=== PATIENT | female | born 1950 | race Caucasian/White ===

== ENCOUNTER → 2018-12-03 | Outpatient (CLI) | payer OTHER, MEDICARE | END | disposition home or self-care (01) | LOC: LAB EV 14:56 → LAB SHORT 14:56 | DX: N39.0 Urinary tract infection, site not specified (principal) | CPT/HCPCS: 87077; 87086; 87186 ==

== ENCOUNTER → 2018-12-08 | Outpatient (CLI) | payer OTHER, MEDICARE ==
[2018-12-08 18:44] LABS: Source, Urine Catheter
[2018-12-08 19:08] LABS: Bilirubin, Urine Neg (Neg); Blood, Urine 2+ (Neg); Glucose Qualitative, Urine Neg (Neg); Ketones, Urine Neg (Neg); Leukocyte Esterase, Urine Neg (Neg); Nitrite, Urine Neg (Neg); Protein, Urine 2+ (Neg); Urobilinogen, Urine NORM (Normal)
[2018-12-08 19:10] LABS: Appearance, Urine Clear (Clear); Color, Urine Yellow (P-Yellow)
[2018-12-08 19:11] LABS: Bacteria Few /hpf; Squamous Epithelial Cells Few /hpf (Few); White Blood Cells, Urine 0-2 /hpf (0-5)
[2018-12-10 14:07] LABS: HPV 16 Negative (Negative); HPV 18 Negative (Negative); HPV OTHER HR TYPES Negative (Negative)
== END | disposition home or self-care (01) ==
LOC: LAB 17:24 → LAB SHORT 17:24
PROVIDERS: Obstetrics & Gynecology Gynecology
DX: R39.89 Other symptoms and signs involving the genitourinary system (principal); Z91.89 Other specified personal risk factors, not elsewhere classified
CPT/HCPCS: 81001; 87624; G0123

== ENCOUNTER → 2021-08-26 | Outpatient (CLI) | payer OTHER, MEDICARE | END | disposition home or self-care (01) | LOC: LAB SHORT 13:54 | DX: R30.0 Dysuria (principal) | CPT/HCPCS: 87086 ==

== ENCOUNTER → 2021-11-17 | Outpatient (CLI) | payer OTHER, MEDICARE ==
[~2021-11-17] MED LIST: ANAS1 PO; ATOR40TA PO; C COMPLEX1000 M1 PO; CALCIUM W/D3 PO; CEFU250T47 PO; CENTRUM SILVER1 EAC2 PO; CIPR250 PO; EUTHYROX125 MCG PO; LISI5 PO; MACRODANTIN PO; OMEP20ER PO; PROLIA60 MG/1 ML SC; PROM25 PO; ROXICODONE5 MG PO; SOLI5 PO; XARELTO10 M1 PO
== END | disposition home or self-care (01) ==
LOC: LAB 11:00 → LAB SHORT 11:00
DX: R30.0 Dysuria (principal)
CPT/HCPCS: 87077; 87086; 87186

== ENCOUNTER → 2022-03-03 | Outpatient (CLI) | payer OTHER, MEDICARE ==
[2022-03-03 12:58] LABS: Source, Urine Clean Catch
[2022-03-03 13:03] LABS: Appearance, Urine Clear (Clear); Bilirubin, Urine Neg (Neg); Blood, Urine Neg (Neg); Color, Urine Yellow (P-Yellow); Glucose Qualitative, Urine Neg (Normal); Ketones, Urine Neg (Neg); Leukocyte Esterase, Urine 1+ (Neg); Nitrite, Urine Neg (Neg); Protein, Urine Neg (Neg); Specific Gravity, Urine 1.005 (1.003-1.022); Urobilinogen, Urine NORM (Normal)
[2022-03-03 13:07] LABS: Red Blood Cells, Urine Not Seen /hpf (0-2); White Blood Cells, Urine 0-2 /hpf (0-5)
[2022-03-03 13:08] LABS: Bacteria Not Seen /hpf; Squamous Epithelial Cells Rare /hpf (Few)
[2022-03-03 17:02] LABS: Creatinine, Urine Random 45.9 mg/dL (27.00-270.00); Protein, Urine Random 9.3 mg/dL (0.0-11.9); Protein/Creat Ratio, Ur Random 0.2
== END | disposition home or self-care (01) ==
LOC: LAB SHORT 11:50 → LAB 11:50
PROVIDERS: Internal Medicine Nephrology
DX: N18.32 Chronic kidney disease, stage 3b (principal)
CPT/HCPCS: 81001; 82570; 84156

== ENCOUNTER → 2022-03-08 | Outpatient (CLI) | payer OTHER, MEDICARE | LOC: LAB SHORT 11:35 | DX: N39.0 Urinary tract infection, site not specified (principal) | CPT/HCPCS: 87086; 87147 ==

== ENCOUNTER 2022-04-02 05:55 | Day surgery (SDC) | payer OTHER, MEDICARE ==
[~2022-04-02] VITALS: Ht 165.1 cm; Wt 84.7 kg
[~2022-04-02 05:55] MED LIST changes: -CEFU250T47 PO; -CIPR250 PO; -PROM25 PO; -ROXICODONE5 MG PO; -XARELTO10 M1 PO
[2022-04-02] MEDS ORDERED: CIPR250 PO (06:29)
--- NOTE | 2022-04-02 07:06 | NUR ---
Ambulatory in Day Surgery. History, Chart, Medications and Allergies reviewed before start of procedure. Patient States Post-Procedure ride home has been arranged WITH .
--- NOTE | 2022-04-02 08:26 | NUR ---
04/02/22 0826 Jenna Alvarado PATIENT RECEIVED VANCO 1 GM IN THE PREOP SETTING PRIOR TO ARRIVING IN THE OR.
--- NOTE | 2022-04-02 19:34 | NUR ---
SHIFT SUMMARY PT WAS NAUSEATED UPON ARRIVAL BUT HAS DONE GREAT SINCE. WORKED w/ THERAPY, UP TO CHAIR, VOIDING EASILY, & NOW TOLERATING DIET. NO DRNG TO AVILA WRAP. PAIN VERY WELL MANAGED; DENIES PAIN AT THIS TIME.
[2022-04-03 04:43] LABS: BASOPHILS ABSOLUTE AUTO 0.01 K/mm3 (0.00-0.23); BASOPHILS PERCENT AUTO 0 % (0-2); EOSINOPHILS PERCENT AUTO 0 % (0-6); Hemoglobin 11.2 g/dL (11.5-16.0); IMMATURE GRAN ABSOLUTE AUTO 0.06 K/mm3 (0.00-0.10); IMMATURE GRAN PERCENT AUTO 0 % (0-1); LYMPHOCYTES ABSOLUTE AUTO 0.57 K/mm3 (0.84-5.20); LYMPHOCYTES PERCENT AUTO 4 % (21-46); MONOCYTES ABSOLUTE AUTO 0.96 K/mm3 (0.16-1.47); MONOCYTES PERCENT AUTO 7 % (4-13); Mean Corpuscular HGB 28.4 pg (26.0-34.0); Mean Corpuscular HGB Conc 32.9 g/dL (31.5-36.5); Mean Corpuscular Volume 86 fL (80-100); Mean Platelet Volume 11.2 fL (9.1-12.4); NEUTROPHILS ABSOLUTE AUTO 12.59 K/mm3 (1.96-9.15); NEUTROPHILS PERCENT AUTO 89 % (41-73); Platelet Count 179 K/mm3 (150-400); RDW Coefficient Variation 13.6 % (11.7-14.2); RDW Standard Deviation 43.2 fL (35.1-46.3); Red Blood Cell Count 3.95 M/mm3 (3.80-5.20); White Blood Cell Count 14.19 K/mm3 (4.00-11.30)
--- NOTE | 2022-04-03 05:00 | NUR ---
SUMMARY PT PAIN MANAGED WELL. PT HAS BEEN VOIDING WELL. PT AMBULATORY WITH GB AND FWW. NO NEW ISSUES NOTED. CALL LIGHT IN REACH
[2022-04-03 05:02] LABS: Bun/Creatinine Ratio 24.9 (12.0-20.0); Calcium, Blood 6.7 mg/dL (8.5-10.1); Creatinine, Blood 1.97 mg/dL (0.40-1.00); Magnesium, Blood 1.8 mg/dL (1.6-2.4); Potassium, Blood 5.1 mmol/L (3.5-5.5)
[2022-04-03] MEDS ORDERED: CEFU250T47 PO (07:39)
[2022-04-03] MEDS ORDERED: ROXICODONE5 MG PO (07:40)
[2022-04-03] MEDS ORDERED: PROM25 PO (07:40)
[2022-04-03] MEDS ORDERED: XARELTO10 M1 PO (07:41)
--- NOTE | 2022-04-03 09:39 | NUR ---
0930 discharged to home with . pt lana po food and fluids without nausea. voiding clear yellow urine. pt ambulating with use of walker and gait belt. pt and her verbalize understanding of discharge instructions and are in agreement with plans to discharge home
== END 2022-04-03 09:30 | disposition home or self-care (01) ==
LOC: ORSCMMR 05:55 → ORD 07:30 → ORSCMMR 07:30 → SURS 10:23 → ORSCMMR 04-03 09:30
PROVIDERS: Orthopaedic Surgery
PROC: 0SRC0J9 Replacement of Right Knee Joint with Synthetic Substitute, Cemented, Open Approach (ICD-10-PCS; principal; 2022-04-02 07:30)
PROC: 8E0YXBZ Computer Assisted Procedure of Lower Extremity (ICD-10-PCS; principal; 2022-04-02 07:30)
DX: M17.11 Unilateral primary osteoarthritis, right knee (principal); E11.22 Type 2 diabetes mellitus with diabetic chronic kidney disease; I12.9 Hypertensive chronic kidney disease with stage 1 through stage 4 chronic kidney disease, or unspecified chronic kidney disease; N18.30 Chronic kidney disease, stage 3 unspecified; I45.10 Unspecified right bundle-branch block; E78.00 Pure hypercholesterolemia, unspecified; K21.9 Gastro-esophageal reflux disease without esophagitis; E03.9 Hypothyroidism, unspecified; Z79.899 Other long term (current) drug therapy
CPT/HCPCS: 36415; 73560-RT; 80048; 83735; 85025; 97110; 97116; 97162; A9270; C1713; C1776; J0171; J0690; J0735; J1100; J1885; J2250; J2405; J2550; J2704; J2795; J3010; J3370; J7050; J7060; J7120

== ENCOUNTER → 2023-05-08 | Outpatient (CLI) | payer OTHER, MEDICARE ==
[~2023-05-08] MED LIST changes: +CEFU250T47 PO; +CIPR250 PO; +MONT10T PO; +MULVITA PO; +PROM25 PO; +ROXICODONE5 MG PO; +XARELTO10 M1 PO
[2023-05-08 17:14] LABS: Source, Urine Clean Catch
[2023-05-08 18:38] LABS: Appearance, Urine Clear (Clear); Bilirubin, Urine Neg (Neg); Blood, Urine 3+ (Neg); Color, Urine Yellow (P-Yellow); Glucose Qualitative, Urine Neg (Neg); Ketones, Urine Neg (Neg); Leukocyte Esterase, Urine 2+ (Neg); Nitrite, Urine Neg (Neg); Protein, Urine Neg (Neg); Urobilinogen, Urine NORM (Normal)
[2023-05-08 19:05] LABS: Bacteria Few /hpf; Hyaline Casts 0-2 /lpf (0-2); Squamous Epithelial Cells Few /hpf (Few); Transitional Epithelial Cells Rare /hpf (0-Rare)
== END | disposition home or self-care (01) ==
LOC: LAB 17:12 → LAB SHORT 17:12
PROVIDERS: Obstetrics & Gynecology
DX: R30.0 Dysuria (principal)
CPT/HCPCS: 81001; 87086; 87147

== ENCOUNTER 2023-05-15 11:19 | Day surgery (SDC) | payer OTHER, MEDICARE ==
[~2023-05-15] VITALS: Ht 165.1 cm; Wt 84.6 kg
[2023-05-15 12:24] VITALS: BP 106/65
--- NOTE | 2023-05-15 12:56 | NUR ---
PRE-PROCEDURE NOTE PT A&OX4, BREATHING RA, AT BEDSIDE. PT NECKLACE GIVEN TO . Ambulatory in Day Surgery Patient confirms NPO status and agrees with scheduled surgery. Pre-Op teaching done. Pt verbalizes understanding. Patient States Post-Procedure ride home has been arranged.
--- NOTE | 2023-05-15 14:01 | NUR ---
05/15/23 1401 Ashleigh Cárdenas HISTORY, CHART, MEDICATIONS AND ALLERGIES REVIEWED BEFORE START OF PROCEDURE. PATIENT CONFIRMS NPO STATUS AND AGREES WITH SCHEDULED PROCEDURE. 3-LEAD EKG REVIEWED WITH PHYSICIAN PRIOR TO START OF PROCEDURE. MONITOR INTACT WITH CONTINUOUS PULSE OXIMETRY,CAPNOGRAPHY, 3-LEAD EKG, INTERMITTENT BP. SUPPLEMENTAL O2 TO BE TITRATED THROUGHOUT PROCEDURE TO MAINTAIN O2 SATURATION ABOVE 90%. PATIENT DETERMINED TO BE ASA APPROPRIATE FOR PROPOFOL SEDATION PRIOR TO START OF PROCEDURE BY DR. YO
[2023-05-15 14:20] VITALS: BP 93/62
[2023-05-15 14:30] VITALS: BP 116/69
--- NOTE | 2023-05-15 14:37 | NUR ---
Patient up to Ambulate independently. Gait steady. Discharge instructions reviewed with patient. Patient verbalizes understanding. Copy given to patient to take home. Patient States Post-Procedure ride home has been arranged. Discharged via wheelchair to private car for ride home. PAMPHLETS FOR DIVERTICULOUSIS PROVIDED. ALL BELONINGS RETURNED AND ACCOUTNED FOR.
[2023-05-15 14:41] VITALS: BP 106/71
== END 2023-05-15 14:38 | disposition home or self-care (01) ==
LOC: ORSCMMR 11:19 → ORD 13:00 → ORSCMMR 13:00 → ORSCSDS 05-18 10:00
PROVIDERS: Internal Medicine Gastroenterology
PROC: 0DBM8ZX Excision of Descending Colon, Via Natural or Artificial Opening Endoscopic, Diagnostic (ICD-10-PCS; principal; 2023-05-15 13:00)
PROC: 0DBH8ZX Excision of Cecum, Via Natural or Artificial Opening Endoscopic, Diagnostic (ICD-10-PCS; principal; 2023-05-15 13:00)
PROC: 0DBK8ZX Excision of Ascending Colon, Via Natural or Artificial Opening Endoscopic, Diagnostic (ICD-10-PCS; principal; 2023-05-15 13:00)
DX: Z12.11 Encounter for screening for malignant neoplasm of colon (principal); D12.5 Benign neoplasm of sigmoid colon; D12.2 Benign neoplasm of ascending colon; D12.0 Benign neoplasm of cecum; D12.4 Benign neoplasm of descending colon; K57.30 Diverticulosis of large intestine without perforation or abscess without bleeding; Z87.891 Personal history of nicotine dependence; Z79.899 Other long term (current) drug therapy
CPT/HCPCS: 88305; J2704; J7120

== ENCOUNTER 2024-06-04 13:33 | Emergency (ER) | payer OTHER, MEDICARE ==
[~2024-06-04] VITALS: Ht 165.1 cm; Wt 81.7 kg
[2024-06-04 14:27] LABS: Albumin, Blood 2.2 g/dL (3.4-5.0); Albumin/Globulin Ratio 0.4 (0.8-1.8); Bilirubin, Total 1.6 mg/dL (0.1-1.0); Calcium, Blood 8.5 mg/dL (8.5-10.1); Creatinine, Blood 3.62 mg/dL (0.40-1.00); Globulin, Blood 5.1 g/dL (2.2-4.0); Potassium, Blood 4.4 mmol/L (3.5-5.5); Total Protein, Blood 7.3 g/dL (6.4-8.2)
[2024-06-04 14:31] LABS: Hematocrit 33.9 % (33.0-51.0); Hemoglobin 11.7 g/dL (11.5-16.0); Mean Corpuscular HGB Conc 34.5 g/dL (31.5-36.5); Mean Corpuscular Volume 81 fL (80-100); Mean Platelet Volume 11.4 fL (9.1-12.4); Platelet Count 264 K/mm3 (150-400); RDW Coefficient Variation 14.5 % (11.7-14.2); RDW Standard Deviation 42.8 fL (35.1-46.3); Red Blood Cell Count 4.18 M/mm3 (3.80-5.20); White Blood Cell Count 26.78 K/mm3 (4.00-11.30)
[2024-06-04 14:57] LABS: BAND PERCENT MAN 3 % (0-8); BASOPHILS PERCENT MAN 0 % (0-2); EOSINOPHILS PERCENT MAN 0 % (0-6); LYMPHOCYTES ABSOLUTE MAN 1.33 K/mm3 (0.84-5.20); LYMPHOCYTES PERCENT MAN 5 % (21-46); MONOCYTES PERCENT MAN 6 % (4-13); NEUTROPHILS ABSOLUTE MAN 23.83 K/mm3 (1.96-9.15); SEG NEUTROPHILS PERCENT MAN 86 % (41-73); TOTAL CELLS COUNTED 100
[2024-06-04] MEDS ORDERED: Vancomycin HCL 2,000 MG in NS 520 ML IV ONE (17:40)
[2024-06-04] MEDS ORDERED: Cefepime HCl 2,000 MG in NS 100 ML IV ONE (17:40)
[2024-06-04] MEDS ORDERED: NS 1,000 ML IV SCH (17:40)
[2024-06-04] MEDS ORDERED: Clindamycin 900mg in D5W 50ML 50 ML IV ONE (18:05)
[2024-06-04] MEDS ORDERED: Piperacillin/Tazobactam Sod 3.375 GM in NS 100 ML IV ONE (18:05)
[2024-06-04] MEDS ORDERED: Piperacillin/Tazobactam Sod 3.375 GM in NS 50 ML IV SCH (18:05)
[2024-06-04 21:20] VITALS: BP 130/63
== END 2024-06-04 21:54 | disposition short-term general hospital (02) ==
LOC: ER 13:33
PROVIDERS: Student in an Organized Health Care Education/Training Program
DX: N76.4 Abscess of vulva (principal); L03.116 Cellulitis of left lower limb; L03.317 Cellulitis of buttock; L02.416 Cutaneous abscess of left lower limb; L02.31 Cutaneous abscess of buttock; N76.82 Fournier disease of vagina and vulva; Z79.899 Other long term (current) drug therapy; Z88.5 Allergy status to narcotic agent; Z88.0 Allergy status to penicillin; Z88.2 Allergy status to sulfonamides; Z88.8 Allergy status to other drugs, medicaments and biological substances
CPT/HCPCS: 36415; 74176; 80053; 83605; 85025; 96365; 96366; 96367; 99285-25; J0692; J2543; J3370; J7030; J7040

== ENCOUNTER 2024-06-17 03:57 | Day surgery (SDC) | payer OTHER, MEDICARE ==
[2024-06-17] MEDS ORDERED: Lidocaine HCl 4% Topical Soln 5 MLUDC ONE (13:22)
== END 2024-06-18 01:19 | disposition home or self-care (01) ==
LOC: WOUND 03:57
DX: T81.31XA Disruption of external operation (surgical) wound, not elsewhere classified, initial encounter (principal); E11.52 Type 2 diabetes mellitus with diabetic peripheral angiopathy with gangrene; I12.9 Hypertensive chronic kidney disease with stage 1 through stage 4 chronic kidney disease, or unspecified chronic kidney disease; E11.22 Type 2 diabetes mellitus with diabetic chronic kidney disease; N18.30 Chronic kidney disease, stage 3 unspecified; E89.0 Postprocedural hypothyroidism; Z87.891 Personal history of nicotine dependence; Z88.1 Allergy status to other antibiotic agents; Z88.0 Allergy status to penicillin; Z88.5 Allergy status to narcotic agent; Z88.2 Allergy status to sulfonamides; Z88.8 Allergy status to other drugs, medicaments and biological substances; Z90.710 Acquired absence of both cervix and uterus
CPT/HCPCS: A9270; G0463

== ENCOUNTER 2024-06-20 02:42 | Day surgery (SDC) | payer OTHER, MEDICARE ==
[2024-06-20] MEDS ORDERED: Lidocaine HCl 4% Topical Soln 50 ML BTL ONE (14:46)
== END 2024-06-20 23:00 | disposition home or self-care (01) ==
LOC: WOUND 02:42
DX: T81.31XA Disruption of external operation (surgical) wound, not elsewhere classified, initial encounter (principal); S31.502A Unspecified open wound of unspecified external genital organs, female, initial encounter; I12.9 Hypertensive chronic kidney disease with stage 1 through stage 4 chronic kidney disease, or unspecified chronic kidney disease; E11.22 Type 2 diabetes mellitus with diabetic chronic kidney disease; N18.30 Chronic kidney disease, stage 3 unspecified

== ENCOUNTER 2024-06-23 12:16 | Day surgery (SDC) | payer OTHER, MEDICARE ==
[2024-06-23] MEDS ORDERED: Lidocaine HCl 4% Topical Soln 50 ML BTL ONE (12:20)
== END 2024-06-23 22:48 | disposition home or self-care (01) ==
LOC: WOUND 12:16
DX: T81.31XS Disruption of external operation (surgical) wound, not elsewhere classified, sequela (principal); S31.502A Unspecified open wound of unspecified external genital organs, female, initial encounter; E11.22 Type 2 diabetes mellitus with diabetic chronic kidney disease; I12.9 Hypertensive chronic kidney disease with stage 1 through stage 4 chronic kidney disease, or unspecified chronic kidney disease; N18.30 Chronic kidney disease, stage 3 unspecified; E11.622 Type 2 diabetes mellitus with other skin ulcer; E11.52 Type 2 diabetes mellitus with diabetic peripheral angiopathy with gangrene; Y83.8 Other surgical procedures as the cause of abnormal reaction of the patient, or of later complication, without mention of misadventure at the time of the procedure

== ENCOUNTER 2024-06-27 02:23 | Day surgery (SDC) | payer OTHER, MEDICARE ==
[2024-06-27] MEDS ORDERED: Lidocaine HCl 4% Topical Soln 50 ML BTL ONE (14:11)
== END 2024-06-27 23:00 | disposition home or self-care (01) ==
LOC: WOUND 02:23
DX: T81.31XA Disruption of external operation (surgical) wound, not elsewhere classified, initial encounter (principal); E11.52 Type 2 diabetes mellitus with diabetic peripheral angiopathy with gangrene; I12.9 Hypertensive chronic kidney disease with stage 1 through stage 4 chronic kidney disease, or unspecified chronic kidney disease; E11.22 Type 2 diabetes mellitus with diabetic chronic kidney disease; N18.30 Chronic kidney disease, stage 3 unspecified

== ENCOUNTER 2024-06-29 01:52 | Day surgery (SDC) | payer OTHER, MEDICARE ==
[2024-06-29] MEDS ORDERED: Lidocaine HCl 4% Topical Soln 50 ML BTL ONE (12:55)
== END 2024-06-29 23:03 | disposition home or self-care (01) ==
LOC: WOUND 01:52
DX: T81.31XD Disruption of external operation (surgical) wound, not elsewhere classified, subsequent encounter (principal); E11.52 Type 2 diabetes mellitus with diabetic peripheral angiopathy with gangrene; E11.622 Type 2 diabetes mellitus with other skin ulcer; E11.22 Type 2 diabetes mellitus with diabetic chronic kidney disease; I12.9 Hypertensive chronic kidney disease with stage 1 through stage 4 chronic kidney disease, or unspecified chronic kidney disease; N18.30 Chronic kidney disease, stage 3 unspecified; Y83.8 Other surgical procedures as the cause of abnormal reaction of the patient, or of later complication, without mention of misadventure at the time of the procedure

== ENCOUNTER 2024-07-01 03:11 | Day surgery (SDC) | payer OTHER, MEDICARE ==
[2024-07-01] MEDS ORDERED: Lidocaine HCl 4% Topical Soln 50 ML BTL ONE (11:27)
[2024-07-01] MEDS ORDERED: Triamcinolone Acet 0.1% Cream 15 gm ONE (11:37)
== END 2024-07-01 23:03 | disposition home or self-care (01) ==
LOC: WOUND 03:11
DX: T81.31XA Disruption of external operation (surgical) wound, not elsewhere classified, initial encounter (principal); I12.9 Hypertensive chronic kidney disease with stage 1 through stage 4 chronic kidney disease, or unspecified chronic kidney disease; E11.22 Type 2 diabetes mellitus with diabetic chronic kidney disease; N18.30 Chronic kidney disease, stage 3 unspecified; E11.52 Type 2 diabetes mellitus with diabetic peripheral angiopathy with gangrene
CPT/HCPCS: A9270

== ENCOUNTER 2024-07-04 09:00 | Day surgery (SDC) | payer OTHER, MEDICARE ==
[2024-07-04] MEDS ORDERED: Lidocaine HCl 4% Topical Soln 50 ML BTL ONE (11:27)
== END 2024-07-04 23:05 | disposition home or self-care (01) ==
LOC: WOUND 09:00
DX: T81.31XA Disruption of external operation (surgical) wound, not elsewhere classified, initial encounter (principal); E11.52 Type 2 diabetes mellitus with diabetic peripheral angiopathy with gangrene; I12.9 Hypertensive chronic kidney disease with stage 1 through stage 4 chronic kidney disease, or unspecified chronic kidney disease; E11.22 Type 2 diabetes mellitus with diabetic chronic kidney disease; N18.30 Chronic kidney disease, stage 3 unspecified

== ENCOUNTER 2024-07-06 03:53 | Day surgery (SDC) | payer OTHER, MEDICARE | END 2024-07-06 23:33 | disposition home or self-care (01) | LOC: WOUND 03:53 | DX: T81.31XA Disruption of external operation (surgical) wound, not elsewhere classified, initial encounter (principal); I12.9 Hypertensive chronic kidney disease with stage 1 through stage 4 chronic kidney disease, or unspecified chronic kidney disease; E11.22 Type 2 diabetes mellitus with diabetic chronic kidney disease; N18.30 Chronic kidney disease, stage 3 unspecified ==

== ENCOUNTER 2024-07-08 04:43 | Day surgery (SDC) | payer OTHER, MEDICARE ==
[2024-07-08] MEDS ORDERED: Lidocaine HCl 4% Topical Soln 50 ML BTL ONE (12:43)
== END 2024-07-08 23:44 | disposition home or self-care (01) ==
LOC: WOUND 04:43
DX: T81.31XD Disruption of external operation (surgical) wound, not elsewhere classified, subsequent encounter (principal); S31.502D Unspecified open wound of unspecified external genital organs, female, subsequent encounter; E11.22 Type 2 diabetes mellitus with diabetic chronic kidney disease; I12.9 Hypertensive chronic kidney disease with stage 1 through stage 4 chronic kidney disease, or unspecified chronic kidney disease; N18.30 Chronic kidney disease, stage 3 unspecified; E11.622 Type 2 diabetes mellitus with other skin ulcer; Y83.8 Other surgical procedures as the cause of abnormal reaction of the patient, or of later complication, without mention of misadventure at the time of the procedure; X58.XXXD Exposure to other specified factors, subsequent encounter

== ENCOUNTER 2024-07-11 07:22 | Day surgery (SDC) | payer OTHER, MEDICARE | END 2024-07-11 22:52 | disposition home or self-care (01) | LOC: WOUND 07:22 | DX: T81.31XS Disruption of external operation (surgical) wound, not elsewhere classified, sequela (principal); S31.5 Open wound of unspecified external genital organs; I12.9 Hypertensive chronic kidney disease with stage 1 through stage 4 chronic kidney disease, or unspecified chronic kidney disease; E11.22 Type 2 diabetes mellitus with diabetic chronic kidney disease; N18.30 Chronic kidney disease, stage 3 unspecified; E11.622 Type 2 diabetes mellitus with other skin ulcer; Y83.8 Other surgical procedures as the cause of abnormal reaction of the patient, or of later complication, without mention of misadventure at the time of the procedure ==

== ENCOUNTER 2024-07-13 03:22 | Day surgery (SDC) | payer OTHER, MEDICARE | END 2024-07-13 23:00 | disposition home or self-care (01) | LOC: WOUND 03:22 | DX: T81.31XD Disruption of external operation (surgical) wound, not elsewhere classified, subsequent encounter (principal); E11.52 Type 2 diabetes mellitus with diabetic peripheral angiopathy with gangrene; I12.9 Hypertensive chronic kidney disease with stage 1 through stage 4 chronic kidney disease, or unspecified chronic kidney disease; E11.22 Type 2 diabetes mellitus with diabetic chronic kidney disease; N18.30 Chronic kidney disease, stage 3 unspecified ==

== ENCOUNTER 2024-07-15 04:15 | Day surgery (SDC) | payer OTHER, MEDICARE | END 2024-07-16 02:55 | disposition home or self-care (01) | LOC: WOUND 04:15 | DX: S31.40XA Unspecified open wound of vagina and vulva, initial encounter (principal); T81.31XA Disruption of external operation (surgical) wound, not elsewhere classified, initial encounter; X58.XXXA Exposure to other specified factors, initial encounter; I12.9 Hypertensive chronic kidney disease with stage 1 through stage 4 chronic kidney disease, or unspecified chronic kidney disease; E11.22 Type 2 diabetes mellitus with diabetic chronic kidney disease; N18.30 Chronic kidney disease, stage 3 unspecified; E11.622 Type 2 diabetes mellitus with other skin ulcer ==

== ENCOUNTER 2024-07-18 04:38 | Day surgery (SDC) | payer OTHER, MEDICARE | END 2024-07-18 23:00 | disposition home or self-care (01) | LOC: WOUND 04:38 | DX: T81.31XA Disruption of external operation (surgical) wound, not elsewhere classified, initial encounter (principal); I12.9 Hypertensive chronic kidney disease with stage 1 through stage 4 chronic kidney disease, or unspecified chronic kidney disease; E11.22 Type 2 diabetes mellitus with diabetic chronic kidney disease; N18.30 Chronic kidney disease, stage 3 unspecified ==

== ENCOUNTER 2024-07-20 05:02 | Day surgery (SDC) | payer OTHER, MEDICARE | END 2024-07-20 23:00 | disposition home or self-care (01) | LOC: WOUND 05:02 | DX: T81.31XA Disruption of external operation (surgical) wound, not elsewhere classified, initial encounter (principal); E11.52 Type 2 diabetes mellitus with diabetic peripheral angiopathy with gangrene; I12.9 Hypertensive chronic kidney disease with stage 1 through stage 4 chronic kidney disease, or unspecified chronic kidney disease; E11.22 Type 2 diabetes mellitus with diabetic chronic kidney disease; N18.30 Chronic kidney disease, stage 3 unspecified ==

== ENCOUNTER 2024-07-25 02:16 | Day surgery (SDC) | payer OTHER, MEDICARE | END 2024-07-25 23:19 | disposition home or self-care (01) | LOC: WOUND 02:16 | DX: E11.622 Type 2 diabetes mellitus with other skin ulcer (principal); E11.22 Type 2 diabetes mellitus with diabetic chronic kidney disease; I12.9 Hypertensive chronic kidney disease with stage 1 through stage 4 chronic kidney disease, or unspecified chronic kidney disease; N18.30 Chronic kidney disease, stage 3 unspecified; S31.5 Open wound of unspecified external genital organs; T81.31XS Disruption of external operation (surgical) wound, not elsewhere classified, sequela; Y83.8 Other surgical procedures as the cause of abnormal reaction of the patient, or of later complication, without mention of misadventure at the time of the procedure; X58.XXXS Exposure to other specified factors, sequela | CPT/HCPCS: G0463 ==

== ENCOUNTER 2024-08-01 02:53 | Day surgery (SDC) | payer OTHER, MEDICARE | END 2024-08-01 23:01 | disposition home or self-care (01) | LOC: WOUND 02:53 | DX: T81.31XD Disruption of external operation (surgical) wound, not elsewhere classified, subsequent encounter (principal); E11.52 Type 2 diabetes mellitus with diabetic peripheral angiopathy with gangrene; I12.9 Hypertensive chronic kidney disease with stage 1 through stage 4 chronic kidney disease, or unspecified chronic kidney disease; E11.22 Type 2 diabetes mellitus with diabetic chronic kidney disease; N18.30 Chronic kidney disease, stage 3 unspecified | CPT/HCPCS: G0463 ==

== ENCOUNTER 2024-08-10 02:37 | Day surgery (SDC) | payer OTHER, MEDICARE | END 2024-08-10 23:00 | disposition home or self-care (01) | LOC: WOUND 02:37 | DX: T81.31XD Disruption of external operation (surgical) wound, not elsewhere classified, subsequent encounter (principal); E11.52 Type 2 diabetes mellitus with diabetic peripheral angiopathy with gangrene; E11.622 Type 2 diabetes mellitus with other skin ulcer; I12.9 Hypertensive chronic kidney disease with stage 1 through stage 4 chronic kidney disease, or unspecified chronic kidney disease; E11.22 Type 2 diabetes mellitus with diabetic chronic kidney disease; N18.30 Chronic kidney disease, stage 3 unspecified; Y83.8 Other surgical procedures as the cause of abnormal reaction of the patient, or of later complication, without mention of misadventure at the time of the procedure | CPT/HCPCS: G0463 ==

== ENCOUNTER 2024-08-17 03:47 | Day surgery (SDC) | payer OTHER, MEDICARE | END 2024-08-17 23:57 | disposition home or self-care (01) | LOC: WOUND 03:47 | DX: T81.31XA Disruption of external operation (surgical) wound, not elsewhere classified, initial encounter (principal); S31.502A Unspecified open wound of unspecified external genital organs, female, initial encounter; N76.82 Fournier disease of vagina and vulva; I12.9 Hypertensive chronic kidney disease with stage 1 through stage 4 chronic kidney disease, or unspecified chronic kidney disease; E11.22 Type 2 diabetes mellitus with diabetic chronic kidney disease; N18.30 Chronic kidney disease, stage 3 unspecified | CPT/HCPCS: G0463 ==

== ENCOUNTER 2024-08-24 05:50 | Day surgery (SDC) | payer OTHER, MEDICARE ==
[2024-08-24] MEDS ORDERED: Lidocaine HCl 4% Cream 5 GM ONE (15:14)
[2024-08-24] MEDS ORDERED: Silver Nitr/Potassium Nitrate 1 EA APPL ONE ×2 (15:27)
== END 2024-08-24 23:00 | disposition home or self-care (01) ==
LOC: WOUND 05:50
DX: T81.31XD Disruption of external operation (surgical) wound, not elsewhere classified, subsequent encounter (principal); I12.9 Hypertensive chronic kidney disease with stage 1 through stage 4 chronic kidney disease, or unspecified chronic kidney disease; E11.22 Type 2 diabetes mellitus with diabetic chronic kidney disease; N18.30 Chronic kidney disease, stage 3 unspecified
CPT/HCPCS: A9270

== ENCOUNTER 2024-08-29 04:29 | Day surgery (SDC) | payer OTHER, MEDICARE ==
[2024-08-29] MEDS ORDERED: Lidocaine HCl 4% Cream 5 GM ONE (10:49)
[2024-08-29] MEDS ORDERED: Silver Nitr/Potassium Nitrate 1 EA APPL ONE (10:55)
== END 2024-08-29 23:24 | disposition home or self-care (01) ==
LOC: WOUND 04:29
DX: T81.31XA Disruption of external operation (surgical) wound, not elsewhere classified, initial encounter (principal); S31.502A Unspecified open wound of unspecified external genital organs, female, initial encounter; N76.82 Fournier disease of vagina and vulva; I12.9 Hypertensive chronic kidney disease with stage 1 through stage 4 chronic kidney disease, or unspecified chronic kidney disease; E11.22 Type 2 diabetes mellitus with diabetic chronic kidney disease; N18.30 Chronic kidney disease, stage 3 unspecified; X58.XXXA Exposure to other specified factors, initial encounter
CPT/HCPCS: A9270

== ENCOUNTER 2024-09-05 03:07 | Day surgery (SDC) | payer OTHER, MEDICARE | END 2024-09-05 23:00 | disposition home or self-care (01) | LOC: WOUND 03:07 | DX: T81.31XA Disruption of external operation (surgical) wound, not elsewhere classified, initial encounter (principal); I12.9 Hypertensive chronic kidney disease with stage 1 through stage 4 chronic kidney disease, or unspecified chronic kidney disease; N18.30 Chronic kidney disease, stage 3 unspecified; E11.22 Type 2 diabetes mellitus with diabetic chronic kidney disease; E11.52 Type 2 diabetes mellitus with diabetic peripheral angiopathy with gangrene | CPT/HCPCS: G0463 ==

== ENCOUNTER → 2024-12-20 | Outpatient (CLI) | payer OTHER ==
[2024-12-21 17:50] LABS: Creatinine, Urine Random 46.9 mg/dL (27.00-270.00); Protein, Urine Random 117.3 mg/dL (0.0-11.9); Protein/Creat Ratio, Ur Random 2.5
== END ==
LOC: LAB SHORT 15:05 → LAB 15:05
PROVIDERS: Internal Medicine Nephrology
DX: I12.9 Hypertensive chronic kidney disease with stage 1 through stage 4 chronic kidney disease, or unspecified chronic kidney disease (principal); N18.4 Chronic kidney disease, stage 4 (severe)
CPT/HCPCS: 82570; 84156